=== PATIENT | male | born 1955 | race Caucasian/White ===

== ENCOUNTER → 2017-06-05 12:21 | Outpatient (CLI) | payer OTHER, MEDICARE, SELFPAY ==
[2017-06-05 16:21] LABS: AST(SGOT) 16 U/L (15-37); Alanine Aminotransfer ALT/SGPT 40 U/L (16-61); Albumin, Serum 3.6 g/dL (3.2-5.0); Alkaline Phosphatase 80 U/L (45-117); Anion Gap 7 (5-15); BUN 24 mg/dL (7-18); BUN/Creat Ratio 18.6 RATIO (10-20); Calcium,Total 8.8 mg/dL (8.5-10.1); Chloride 102 mmol/L (98-107); Creatinine, Serum 1.29 mg/dL (0.70-1.30); EST Glomerular Filtration Rate 60 mL/min (>60); Est Glom Filt Rate - Afr Amer 73 mL/min (>60); Globulin 3.7 g/dL (2.2-4.2); Glucose 138 mg/dL (74-106); Potassium 4.7 mmol/L (3.5-5.1); Protein, Total 7.3 g/dL (6.4-8.2); Sodium Level 139 mmol/L (136-145); Thyroid Stim Hormone (TSH) 2.15 uIU/mL (0.358-3.74)
== END ==
PROVIDERS: Family Provider Family Medicine; PCP Family Medicine; Visit Provider Family Medicine
DX: E11.9 Type 2 diabetes mellitus without complications (principal); I10 Essential (primary) hypertension
CPT/HCPCS: 36415; 80053; 84443

== ENCOUNTER → 2017-09-04 10:40 | Outpatient (CLI) | payer OTHER, SELFPAY ==
--- NOTE | 2017-09-04 10:45 | RAD_ITS ---
STUDY: X-RAY - LUMBAR SPINE REASON FOR EXAM: Male, 62 years old. Low back pain TECHNIQUE: 5 view(s) of the lumbar spine were obtained. COMPARISON: None FINDINGS: There is straightening of the normal lumbar lordosis. There is no substantial scoliosis. There is a 1.3 cm anterolisthesis of L5 on S1. There are bilateral pars defects of L5. There is multilevel endplate spondylosis of the lumbar vertebrae. Moderate narrowing of the disc at L5-S1. Otherwise normal disc heights. There is no demonstrated fracture. There is atherosclerotic calcification of the abdominal aorta without a demonstrated aneurysm. RAD/L/S Spine Min 4 Views IMPRESSION: No acute abnormality. Prominent malalignment at L5-S1 with degenerative disc disease. Electronically Signed: Abel Paris MD at 8:34 EDT , Service support ,
== END ==
PROVIDERS: Family Provider Family Medicine; PCP Family Medicine; Visit Provider Family Medicine
DX: M54.40 Lumbago with sciatica, unspecified side (principal)
CPT/HCPCS: 72110

== ENCOUNTER 2017-10-11 10:13 | Outpatient (RCR) | payer OTHER, SELFPAY | END 2017-10-22 23:59 | LOC: NS 10:13 | PROVIDERS: Family Provider Family Medicine; PCP Family Medicine; Visit Provider Family Medicine | DX: Z68.41 Body mass index [BMI] 40.0-44.9, adult (principal); Z71.3 Dietary counseling and surveillance | CPT/HCPCS: 97802 ==

== ENCOUNTER 2017-11-15 08:25 | Outpatient (RCR) | payer OTHER, SELFPAY | END 2017-11-22 23:59 | LOC: NS 08:25 | PROVIDERS: Family Provider Family Medicine; PCP Family Medicine; Visit Provider Family Medicine | DX: Z68.41 Body mass index [BMI] 40.0-44.9, adult (principal); Z71.3 Dietary counseling and surveillance | CPT/HCPCS: 97803 ==

== ENCOUNTER → 2017-12-05 11:34 | Outpatient (CLI) | payer OTHER, SELFPAY ==
--- NOTE | 2017-12-05 11:46 | RAD_ITS ---
STUDY: X-RAY - RIGHT KNEE REASON FOR EXAM: Male, 62 years old. Anterior and medial right-sided knee pain. TECHNIQUE: 4 view(s) of the knee. COMPARISON: Prior comparison studies are not available for review at this time. FINDINGS: Normal visualized distal femur. Normal visualized proximal tibia and fibula. Normal proximal tibiofibular articulation. There is no demonstrated fracture. There is moderate degenerative arthrosis of the medial femorotibial compartment with moderate joint space narrowing. Normal lateral femorotibial compartment. There is mild degenerative arthrosis of the patellofemoral articulation. There is mild lateral subluxation of the patella. There is a soft tissue prominence in the suprapatellar region suggesting a small volume joint effusion. There is soft tissue swelling. RAD/Knee 4 or More Views IMPRESSION: Degenerative arthropathy of the right knee with small joint effusion. Electronically Signed: Arlene Hylton MD at 8:12 EDT , Service support ,
== END ==
PROVIDERS: Family Provider Family Medicine; PCP Family Medicine; Visit Provider Family Medicine
DX: M25.561 Pain in right knee (principal)
CPT/HCPCS: 73564

== ENCOUNTER 2017-12-16 13:00 | Outpatient (RCR) | payer OTHER, SELFPAY ==
--- NOTE | 2017-10-07 14:10 | HP.PTEVAL_ITS ---
Patient's Visit Information OLIMPIA VILLA is a 62 year old M referred to Physical Therapy by Yovany Salmeron with a diagnosis of SPONDYLOLISTHESIS. Date of Evaluation: 10/07/17 Physical Therapist: Lesley Millard - Visit Plan Frequency: 2-3x /Week Duration: 4-6 Weeks Plan: *HEART CONDITION*. *JOINING [facility]. *NO BENDING OR TWISTING*. AQUATIC THERAPY FOR PAIN RELEIF, GAIT TRAINING, POSTURE CORRECTION/ STRENGTHENING, INSTRUCTION IN APPROPRIATE BODY MECHANICS AND ACTIVITY MODIFICATIONS. *DLS WITH A NEUTRAL SPINE* CHANA LE ROM, STRETCHING AND STRENGTHENING. HEP INSTRUCTION. START SLOW AND HAVE PATIENT TEST TOLERANCE BY GETTING OUT OF THE POOL A COUPLE OF TIMES DURING FIRST SESSION. - Subjective Subjective: Work/Leisure: RETIRED. Disability: YES - FOR HEART. Present symptoms: LOW BACK AND CHANA LE PAIN, NUMBNESS AND TINGLING TO FEET. Present since: ABOUT SEPTEMBER OF 2016 IT GOT WORSE BUT LONG HISTORY OF BACK PAIN AND TREATMENT WITH CHIROPRACTOR. Pain Scale: WORST 8/10, LEAST 0/10. Currently: 05/04. Commenced as a result of: NO APPARENT REASON. Symptoms at onset: LOW BACK AND LEGS. Worse: WALKING, WEED EATING, MOWING, WATERING THE GARDEN, STANDING AND BENDING OVER. Better: SITTING WITH LEGS UP. JUST SITTING HELPS. LYING DOWN. Disturbed sleep: SOMETIMES. Previous history/Previous treatment: PATIENT REPORTS HE HAS NEVER HAD A BACK PROBLEM BEFORE SEPTEMBER OR SO OF LAST YEAR. HE REPORTS HE CAN'T EXERCISE OR ANYTHING BECAUSE OF HIS PAIN NOW. HE REPORTS HE HAS JUST TRIED TO DEAL WITH IT ON HIS OWN UNTIL HE TOLD THE DOCTOR ABOUT IT LAST WEEK. NO BACK SURGERY. NO BACK INJECTIONS. NO BACK PT. NO BACK MEDICATION. PATIENT RECALS HE DID GO TO A CHIROPRACTOR FOR ONE VISIT AND IT SEEMED LIKE IT HELPED BUT TWO WEEKS LATER THE PAIN CAME BACK AND AFTER HIS X- RAYS HE REPORTS THE NURSE TOLD HIM DR. SALMERON DOESN'T WANT HIM TO GO BACK TO THE CHIROPRACTOR. HE IS ALSO NOW RECALLING THAT HE WENT TO ANOTHER CHIROPRACTOR OFF AND ON QUITE A BIT FOR 5 YEARS. HE RELATES THOSE TREATMENTS TO HURTING HIS BACK AND RIGHT SIDE LIFTING. Coughing/sneezing/straining: NEGATIVE. Gait: PATIENT REPORTS HE CAN BARELY WALK TO HIS MAILBOX AND BACK. IT STARTS HURTING AFTER WALKING ABOUT 120 FEET. AFTER SITTING ABOUT 15 TO 30 MINUTES HE CAN WALK AGAIN. Difficulty initiating urinatin: NO. Accidents: NO. Unexplained weight loss: NO. Imaging: PATIENT REPORTS THE DOCTOR ORDERED X-RAYS OF HIS BACK LAST WEEK THEN THE NURSE CALLED AND TOLD HIM TO DO PT. STUDY: X-RAY - LUMBAR SPINE. REASON FOR EXAM: Male, 62 years old. Low back pain. TECHNIQUE: 5 view(s) of the lumbar spine were obtained. COMPARISON: None. FINDINGS: There is straightening of the normal lumbar lordosis. There is no. substantial scoliosis. There is a 1.3 cm anterolisthesis of L5 on S1. There are bilateral pars. defects of L5. There is multilevel endplate spondylosis of the lumbar vertebrae. Moderate. narrowing of the disc at L5-S1. Otherwise normal disc heights. There is no. demonstrated fracture. There is atherosclerotic calcification of the abdominal aorta without a. demonstrated aneurysm. RAD/L/S Spine Min 4 Views. IMPRESSION: No acute abnormality. Prominent malalignment at L5-S1 with degenerative. disc disease. PMH: IDDM, HTN, HIGH CHOLESTEROL. Recent major surgery: HEART STENT PLACEMENTS IN 2005 AND 2014. OTHER: PATIENT REPORTS THE DOCTOR IS SENDING HIM TO [facility]. - Objective Sitting/Standing Posture: POOR. Lordosis: REDUCED. Lateral shift: NO. Relevant shift: N/A. Active Correction of posture: WORSE BUT PASSIVE CORRECTION DECREASES PAIN. Other Observations: INDEP GAIT INTO PT WITHOUT ANY ASSISTIVE DEVICES OR LOSS OF BALANCE. HE WALKS WITH A WIDE BASE OF SUPPORT AND CAN NOT WALK ON A STRAIGHT LINE ONE FOOT IN FRONT OF THE OTHER. IN STANDING, RIGHT SHOULDER IS HIGHER THAN LEFT. ILIAC CRESTS APPEAR TO BE FAIRLY SYMMETRICAL BUT DIFFICULT TO PALPATE. Motor deficit: CHANA LE'S 5/5 WITH MMT' ING. Sensory deficit: CHANA LE LIGHT TOUCH SENSATION IS SYMMETRICAL WITH TESTING TODYA. ROM deficit: VERY TIGHT CHANA HIP FLEXORS, HS'S AND GASTROC SOLEUS COMPLEX'S. Reflexes: 2/3 CHANA LE'S. Dural Signs: NEGATIVE CHANA LE DURAL SIGNS. Lumbar mvmt loss: flex - MIN. ext - TYRA. R SG - TYRA. L SG - TYRA. I PROCEEDED WITH LUMBAR ROM TESTING VERY CAUSIOUSLY. PATIENT DENIED INCREASED PAIN WITH LUMBAR ROM TESTING ALL PLANES. PATIENT C/O PAIN AFTER STANDING IN ONE SPOT FOR ABOUT 2 MINUTES. Core strength: POOR. Palpation: PATIENT IS NOT TENDER TO THE TOUCH IN HIS LUMBOSACRAL AREA. LOWER THORACIC AND LUMBAR SPINOUS PROCESSES ARE NOT TENDER. - Goals Goal 1:: DECREASE C/O LBP Goal Time Frame: 4-6 Weeks Goal 2:: IMPROVE STANDING AND WALKING FUNCTION Goal Time Frame: 4-6 Weeks Goal 3:: INSTRUCT IN PROPHYLAXIS Goal Time Frame: 4-6 Weeks - Rehabilitation Potential Rehabilitation Potential: Fair - Anticipated Interventions Patient/Client Instruction: Educate patient on: Condition, Plan of Care, Risk Factors, Benefits of Fitness Program For the Purpose of:: To improve self management Therapeutic Exercise to Include: Strength training, Body mechanics, Postural training, Flexibilty training, Gait and locomotor training, In an aquatic setting, Active ROM, Dynamic Lumbar Stabilization Comment: *NO BENDING OR TWISTING* For the Purpose of:: To decrease pain, To increase ROM, To improve muscle performance and motor function, To increase tolerance to activity/condition/ position, To improve ability of physical actions for home/community/work/leisure , To improve gait and locomotor functions Thank you for the opportunity to evaluate your patient. For Medicare and Medicare HMO plans, please review the plan of care and approve it. It will need to be FAXED BACK to us at [phone] for Medicare purposes. Please let me know if there are questions or concerns regarding this plan of care. Physician Signature: Date:
--- NOTE | 2017-11-08 14:00 | HP.PTREVAL_ITS ---
Yovany Salmeron, It has been my pleasure to treat OLIMPIA VILLA over the last 10 visits for SPONDYLOLISTHESIS. Please see the progress note below for an update on the physical therapy plan of care! Subjective: PATIENT REPORTS HE IS A LITTLE BIT BETTER BUT I STILL GET THE PAINS . HE REPORTS HE USE TO HAVE PAIN EVERY MORNING NOW IT IS MORE LIKE EVERY OTHER DAY. STATES HE CAN USE THE RIDING MOWER FOR A COUPLE HOURS - TAKES A BREAK BETWEEN FRONT AND BACK YARDS. UPCOMING APPOINTMENT WITH DR. SALMERON BEGINNING OF NOV. PATIENT REPORTS HE IS STILL GETTING LOW BACK AND CHANA LE PAIN UP TO 10/10 AT TIMES. CARRYING ABOUT 20 LBS A SHORT DISTANCE LAST SATURDAY CAUSED A LOT OF PAIN. PATIENT REPORTS HE DOES NOT THINK HE IS READY FOR LAND EX YET. WALKING IS STILL THE MOST LIMITED. BENDING AND PULLING ON HOSE TO HOOK IT UP AND MOVED IT INCREASED HIS PAIN. USING CART AT [facility] HELPS. Objective/Function: INDEP GAIT INTO PT WITHOUT ANY ASSISTIVE DEVICES OR LOSS OF BALANCE. HE WALKS WITH A WIDE BASE OF SUPPORT AND CAN NOT WALK ON A STRAIGHT LINE ONE FOOT IN FRONT OF THE OTHER. IN STANDING, RIGHT SHOULDER IS HIGHER THAN LEFT. PATIENT IS ABLE TO TRANSFER FROM SIT TO STAND WITHOUT UE ASSIST NOW BUT IT IS DIFFICULT. Motor deficit: CHANA LE'S 5/5 WITH MMT'ING. Sensory deficit: CHANA LE LIGHT TOUCH SENSATION IS STILL INTACT AND SYMMETRICAL WITH TESTING. ROM deficit: VERY TIGHT CHANA HIP FLEXORS, HS'S AND GASTROC SOLEUS COMPLEX'S. Dural Signs: NEGATIVE CHANA LE DURAL SIGNS. Lumbar mvmt loss: flex - NIL. ext - TYRA. R SG - MOD. L SG - MIN. I PROCEEDED WITH LUMBAR ROM TESTING VERY CAUSIOUSLY. PATIENT DENIED INCREASED PAIN WITH LUMBAR ROM TESTING ALL PLANES AND HE HAS INCREASED LUMBAR ROM COMPARED TO INITIAL EVAL. PATIENT C/O INCREASED BACK AND LEFT LE PAIN AFTER STANDING IN ONE SPOT FOR ABOUT 3.5 MINUTES. Core strength: POOR. Palpation: PATIENT IS STILL NOT TENDER TO THE TOUCH IN HIS LUMBOSACRAL AREA. LOWER THORACIC AND LUMBAR SPINOUS PROCESSES ARE NOT TENDER. EMPHASIZED TO PATIENT TO AVOID BENDING, LIFTING AND TWISTING. PATIENT COMMUNICATED A FAIR UNDERSTANDING. PATIENT NEEDED/NEEDS ENCOURAGEMENT TO COMPLY WITH RESTING SPINE. PATIENT ALSO NEEDED ASSIST UNDERSTANDING HOW TO GET STARTED IN THE POOL WITH THE [facility] PROGRAM. Plan Plan: PATIENT IS APPROPRIATE TO CONTINUE AQUATIC THERAPY BUT RECOMMEND DECREASE TO 1X/WEEK DUE TO PROGRESS MADE WITH INDEP POOL EX'S AND PATIENT HAVING A MEMBERSHIP TO USE OUR POOL THROUGHT THE [facility] BUT THERE IS STILL ROOM FOR MORE IMPROVEMENT/PROGRESSION. PATIENT IS AGREEABLE. Goals Goal 1:: DECREASE C/O LBP Goal Time Frame: 4-6 Weeks Goal 2:: IMPROVE STANDING AND WALKING FUNCTION Goal Time Frame: 4-6 Weeks Goal 3:: INSTRUCT IN PROPHYLAXIS Goal Time Frame: 4-6 Weeks Anticipated Interventions Patient/Client Instruction: Educate patient on: Condition, Plan of Care, Risk Factors, Benefits of Fitness Program For the Purpose of:: To improve self management Therapeutic Exercise to Include: Strength training, Body mechanics, Postural training, Flexibilty training, Gait and locomotor training, In an aquatic setting, Active ROM, Dynamic Lumbar Stabilization Comment: *NO BENDING OR TWISTING* For the Purpose of:: To decrease pain, To increase ROM, To improve muscle performance and motor function, To increase tolerance to activity/condition/ position, To improve ability of physical actions for home/community/work/leisure , To improve gait and locomotor functions Please do not hesitate to contact me at [phone] by phone or Fax: if you have questions or concerns regarding this new plan of care! Sincerely, Lesley Millard
--- NOTE | 2017-12-16 13:45 | HP.PTDCSUM_ITS ---
HP - PT D/C Summary It has been my pleasure to treat OLIMPIA VILLA under orders from Yovany Salmeron, for the diagnosis of SPONDYLOLISTHESIS for a total of 15 visit(s). Discharge Date: Please see the following information for a summary of their discharge status. - Subjective Subjective: PATIENT REPORTS HE IS HAVING A LOT OF PAIN IN HIS BACKS AND LEGS. STATES HE IS NO LONGER IMPROVING BUT HE DOESN'T THINK HE IS WORSE THOUGH. PATIENT REPORTS WHEN HE SAW DR. SALMERON FOR HIS KNEE HE TOLD HIM PT WASN'T HELPING HIM. - Pain LUmbar spine Pain Intensity (Out of 10): 2 LEFT LATERAL LEG Pain Intensity (Out of 10): 0 R knee Pain Intensity (Out of 10): 3 - Overall Improvement % Improvement: 60 - Objective Objective/Function: INDEP GAIT INTO PT WITHOUT ANY ASSISTIVE DEVICES OR LOSS OF BALANCE. HE WALKS WITH A WIDE BASE OF SUPPORT AND STILL CAN NOT WALK ON A STRAIGHT LINE ONE FOOT IN FRONT OF THE OTHER. IN STANDING, RIGHT SHOULDER IS HIGHER THAN LEFT. PATIENT IS ABLE TO TRANSFER FROM SIT TO STAND WITHOUT UE ASSIST BUT IT IS DIFFICULT. Motor deficit: CHANA LE'S 5/5 WITH MMT'ING. Sensory deficit: CHANA LE LIGHT TOUCH SENSATION IS STILL INTACT AND SYMMETRICAL WITH TESTING EXCEPT PATIENT REPORTS HE CAN FEEL MORE ON THE LEFT CALF THAN THE RIGHT LIKE IT IS MORE SENSATIVE COMPARED TO RIGHT. HIS LEFT CALF IS NOT RED, SWOLLEN, WARM OR TENDER WITH HOMANS SIGN TESTING. ROM deficit: VERY TIGHT CHANA HIP FLEXORS, HS'S AND GASTROC SOLEUS COMPLEX'S. Dural Signs: NEGATIVE CHANA LE DURAL SIGNS. Lumbar mvmt loss: flex - NIL. ext - TYRA. R SG - MOD. L SG - MIN. I PROCEEDED WITH LUMBAR ROM TESTING VERY CAUSIOUSLY. PATIENT DENIED INCREASED PAIN WITH LUMBAR ROM TESTING ALL PLANES AND HE HAS INCREASED LUMBAR ROM COMPARED TO INITIAL EVAL BUT SAME LAST RE-CHECK. PATIENT C/O INCREASED BACK PAIN AND ONSET OF LEFT LE PAIN AFTER STANDING IN ONE SPOT FOR LESS THAN ONE MINUTE TODAY. Core strength: POOR. Palpation: PATIENT IS STILL NOT TENDER TO THE TOUCH IN HIS LUMBOSACRAL AREA. LOWER THORACIC AND LUMBAR SPINOUS PROCESSES ARE NOT TENDER. EMPHASIZED AGAIN TO PATIENT TO AVOID BENDING, LIFTING AND TWISTING. PATIENT COMMUNICATED A FAIR UNDERSTANDING. PATIENT NEEDED /NEEDS ENCOURAGEMENT TO COMPLY WITH RESTING SPINE. PATIENT ALSO NEEDED ASSIST UNDERSTANDING HOW TO GET STARTED IN THE POOL WITH THE [facility]GRAM AND THIS PT HELPED HIM SPEAK WITH A WELLNESS STAFF MEMBER. - Goals Goal 1:: DECREASE C/O LBP Goal Progress: Not Progressing Goal 2:: IMPROVE STANDING AND WALKING FUNCTION Goal Progress: Not Progressing Goal 3:: INSTRUCT IN PROPHYLAXIS Goal Progress: Not Progressing - Plan Plan: D/C DUE TO LACK OF CONTINUED IMPROVEMENT. RECOMMENDED PATIENT FOLLOW UP WITH DR. SALMERON AND PATIENT AGREEABLE STATING HE WILL CALL HIM TODAY. - D/C Information If there are questions or concerns regarding this patient's physical therapy, please feel free to call me at [phone]. Thank you for the referral of this patient. Sincerely, Lesley Millard
== END 2017-12-16 19:00 | disposition home or self-care (01) ==
LOC: PT 13:00
PROVIDERS: Family Provider Family Medicine; PCP Family Medicine; Visit Provider Family Medicine
DX: M43.10 Spondylolisthesis, site unspecified (principal)
CPT/HCPCS: 97113; 97162; 97164; 97530

== ENCOUNTER 2017-12-20 13:00 | Outpatient (RCR) | payer OTHER, SELFPAY | END 2017-12-22 23:59 | LOC: NS 13:00 | PROVIDERS: Family Provider Family Medicine; PCP Family Medicine; Visit Provider Family Medicine | DX: E66.01 Morbid (severe) obesity due to excess calories (principal); Z68.41 Body mass index [BMI] 40.0-44.9, adult; Z71.3 Dietary counseling and surveillance | CPT/HCPCS: 97803 ==

== ENCOUNTER 2018-01-10 08:06 | Outpatient (RCR) | payer OTHER, SELFPAY | END 2018-01-22 23:59 | LOC: NS 08:06 | PROVIDERS: Family Provider Family Medicine; PCP Family Medicine; Visit Provider Family Medicine | DX: E66.01 Morbid (severe) obesity due to excess calories (principal); Z68.41 Body mass index [BMI] 40.0-44.9, adult; Z71.3 Dietary counseling and surveillance | CPT/HCPCS: 97803 ==

== ENCOUNTER → 2018-01-31 06:48 | Outpatient (CLI) | payer OTHER, SELFPAY ==
[2018-01-31 08:01] LABS: ALB/GLOB Ratio 0.9 RATIO (0.9-2.4); AST(SGOT) 15 U/L (15-37); Alanine Aminotransfer ALT/SGPT 37 U/L (16-61); Albumin, Serum 3.4 g/dL (3.2-5.0); Alkaline Phosphatase 77 U/L (45-117); Anion Gap 11 (5-15); BUN 23 mg/dL (7-18); BUN/Creat Ratio 18.1 RATIO (10-20); Calcium,Total 8.3 mg/dL (8.5-10.1); Chloride 107 mmol/L (98-107); Cholesterol 164 mg/dL (200); Creatinine, Serum 1.27 mg/dL (0.70-1.30); EST Glomerular Filtration Rate 61 mL/min (>60); Est Glom Filt Rate - Afr Amer 74 mL/min (>60); Globulin 3.8 g/dL (2.2-4.2); Glucose 126 mg/dL (74-106); High Density Lipoprotein 41 mg/dL; Potassium 4.2 mmol/L (3.5-5.1); Protein, Total 7.2 g/dL (6.4-8.2); Sodium Level 143 mmol/L (136-145); Thyroid Stim Hormone (TSH) 3.43 uIU/mL (0.358-3.74); Triglycerides 394 mg/dL; Very Low Density Lipoprotein 79 mg/dL (5-40)
== END ==
PROVIDERS: Family Provider Family Medicine; PCP Family Medicine; Referring Provider Family Medicine; Visit Provider Family Medicine
DX: E11.9 Type 2 diabetes mellitus without complications (principal)
CPT/HCPCS: 36415; 80053; 80061; 84403; 84443

== ENCOUNTER 2018-02-07 14:30 | Outpatient (RCR) | payer OTHER, SELFPAY | END 2018-02-21 23:59 | LOC: NS 14:30 | PROVIDERS: Family Provider Family Medicine; PCP Family Medicine; Visit Provider Family Medicine | DX: E66.01 Morbid (severe) obesity due to excess calories (principal); Z68.41 Body mass index [BMI] 40.0-44.9, adult; Z71.3 Dietary counseling and surveillance | CPT/HCPCS: 97803 ==

== ENCOUNTER 2018-02-28 11:15 | Outpatient (RCR) | payer OTHER, SELFPAY | END 2018-02-28 12:03 | disposition home or self-care (01) | LOC: NS 11:15 | PROVIDERS: Family Provider Family Medicine; PCP Family Medicine; Visit Provider Family Medicine | DX: E66.01 Morbid (severe) obesity due to excess calories (principal); Z68.41 Body mass index [BMI] 40.0-44.9, adult; Z71.3 Dietary counseling and surveillance | CPT/HCPCS: 97803 ==

== ENCOUNTER → 2018-09-15 | Outpatient (CLI) | payer OTHER, SELFPAY ==
--- NOTE | 2018-09-15 10:18 | NM_ITS ---
CLINICAL: 63-year-old male with history of known coronary atherosclerosis presenting for preoperative evaluation. RESTING RADIONUCLIDE VENTRICULOGRAPHY COMPARISON: Prior Resting Radionuclide Ventriculogram dated 11/30/2014 FINDINGS: Following the intravenous administration of 25.4 mCi of 99m Tc Ultratag RBCs, the resting labeled blood pool radionuclide ventriculogram reveals: 1. The left ventricular ejection fraction was calculated to be 58.0 % by equilibrium technique compared to 34.0 % defined on the previous examination dated 11/30/2014. 2. Left and right ventricular wall motion is considered normal and uniform in all projections. NM/MUGA Rest or Stress - Single IMPRESSION: 1. NORMAL resting labeled blood pool radionuclide ventriculography. A. Continued preservation of left ventricular systolic function as described above. B. Compared to the previous RRNV examination dated 11/30/2014, there is significant interval improvement. Electronically Signed: Ryland De Jesus DO at 23:00 EDT Tel , Service support ,
== END | disposition home or self-care (01) ==
LOC: NM 10:11
PROVIDERS: Family Provider Family Medicine; PCP Family Medicine
DX: I25.10 Atherosclerotic heart disease of native coronary artery without angina pectoris (principal); I50.32 Chronic diastolic (congestive) heart failure; I50.30 Unspecified diastolic (congestive) heart failure
CPT/HCPCS: 78472; A9560

== ENCOUNTER → 2018-11-27 | Outpatient (CLI) | payer OTHER, SELFPAY ==
[2018-11-27 09:17] LABS: Absolute Lymphocyte Count 1.37 X10^3/uL (0.83-4.51); Absolute Neutrophil Count 5.5 X10^3/uL (2.0-7.7); Basophil# 0.04 X10^3/uL; Basophil% 0.5 % (0-1); Eosinophil# 0.18 X10^3/uL; Eosinophils% 2.3 % (0-5); Hematocrit 44.1 % (40-54); Lymphocyte # 1.37 X10^3/ul (4.0); Lymphocyte % 17.7 % (19-41); Mean Corp Hgb Conc 31.7 g/dL (32-36); Mean Corpuscular Hgb 29.2 pg (27.0-32.0); Mean Corpuscular Volume 92.1 fL (80-94); Monocyte# 0.62 X10^3/uL; NRBC Flagged by Analyzer 0 % (0-5); Neutrophil # 5.52 X10^3/uL (2.7-7.7); Neutrophil % 71.2 % (47-70); Platelet Count 199 K/mm3 (150-450); RBC Distribution Width CV 14.5 % (11.6-14.6); RBC Distribution Width SD 49.3 fl (35.1-43.9); Red Blood Count 4.79 M/mm3 (4.6-6.2); White Blood Count 7.8 K/mm3 (4.4-11.0)
[2018-11-27 09:56] LABS: AST(SGOT) 12 U/L (15-37); Alanine Aminotransfer ALT/SGPT 27 U/L (16-61); Albumin, Serum 3.5 g/dL (3.2-5.0); Alkaline Phosphatase 81 U/L (45-117); Anion Gap 3 (5-15); BUN 29 mg/dL (7-18); BUN/Creat Ratio 21.2 RATIO (10-20); Calcium,Total 8.6 mg/dL (8.5-10.1); Chloride 104 mmol/L (98-107); Cholesterol 149 mg/dL (200); Creatinine, Serum 1.37 mg/dL (0.70-1.30); EST Glomerular Filtration Rate 56 mL/min (>60); Est Glom Filt Rate - Afr Amer 67 mL/min (>60); Globulin 3.6 g/dL (2.2-4.2); Glucose 132 mg/dL (74-106); High Density Lipoprotein 38 mg/dL; Potassium 4.2 mmol/L (3.5-5.1); Protein, Total 7.1 g/dL (6.4-8.2); Sodium Level 139 mmol/L (136-145); Triglycerides 407 mg/dL
== END | disposition home or self-care (01) ==
LOC: LAB.FUTURE 08:02 → LAB 08:04
PROVIDERS: Family Provider Family Medicine; PCP Family Medicine; Referring Provider Family Medicine; Visit Provider Family Medicine
DX: E78.2 Mixed hyperlipidemia (principal)
CPT/HCPCS: 36415; 80053; 80061; 85025

== ENCOUNTER → 2019-03-20 14:01 | Outpatient (CLI) | payer OTHER, SELFPAY ==
--- NOTE | 2019-03-20 14:05 | ECHOCS_ITS ---
Reason For Study: DYSPNEA/SOB, R/O PHTN Procedure This was a 2D Doppler, Color Flow transthoracic echocardiogram. The study was technically difficult. Due to body habitus. Contrast injection was performed. Exam performed in department. Left Ventricle Normal size and thickness. Moderately dilated left ventricle. The estimated ejection fraction is 45 %. Stage 1 diastolic dysfunction. There is mild to moderate global hypokinesis of the left ventricle. Right Ventricle Normal size and thickness. Normal systolic function. Atria Normal left atrium. Normal right atrium. Normal atrial septum. Mitral Valve The mitral valve is structurally normal. No prolapse or stenosis seen. Tricuspid Valve Normal tricuspid valve. Unable to estimate RV systolic pressure due to insufficient tricuspid regurgitant envelope. Aortic Valve Normal aortic valve. Trisinus/trileaflet aortic valve. Pulmonic Valve The pulmonic valve is not well visualized. Great Vessels Normal aortic root. Normal arch. Normal inferior vena cava. Pericardium/Pleural No pericardial effusion. Medication 22 gauge I.V. with prn adaptor inserted into right arm. Diluted definity 6.0ml given slow IV push to enhance endocardial definition. MMode/2D Measurements & Calculations LVIDd: 5.9 cm IVSd: 1.2 cm Ao root diam: 3.2 cm LVIDs: 4.3 cm LVPWd: 1.1 cm RVDd: 3.2 cm FS: 27.2 % LAV(MOD-bp): 54.2 ml LA A4 area: 18.8 cm2 LA dimension(2D): 4.5 cm LAV(MOD-bp) Indexed: 24.9 ml/m2 LAV(MOD-sp2): 51.3 ml LAV(MOD-sp4): 50.7 ml RA A4 area: 16.8 cm2 Time Measurements MV dec time: 0.19 sec Doppler Measurements & Calculations MV E max maxim: 113.2 cm/sec Lat Peak E' Maxim: 11.6 cm/sec Med Peak E' Maxim: 5.5 cm/sec MV A max maxim: 129.1 cm/sec E/E' lat: 9.7 E/E' med: 20.6 MV E/A: 0.88 Ao V2 max: 150.2 cm/sec LV V1 max: 91.0 cm/sec PA V2 max: 116.3 cm/sec Ao max P.0 mmHg LV V1 max P.3 mmHg Interpretation Summary Moderately dilated left ventricle. The estimated ejection fraction is 45 %. Stage 1 diastolic dysfunction. There is mild to moderate global hypokinesis of the left ventricle. Unable to estimate RV systolic pressure due to insufficient tricuspid regurgitant envelope. Recommend considering right heart catheterization for direct right heart pressure measurements. The study was technically difficult. There is no comparison study available. Contrast injection was performed. Ordering Physician: Obed Alberto Referring Physician: Yovany Ellis Performed By: Jyothi Price RDCS, RVT
== END ==
PROVIDERS: Family Provider Family Medicine; PCP Family Medicine; Referring Provider Internal Medicine Pulmonary Disease; Visit Provider Internal Medicine Pulmonary Disease
DX: R06.09 Other forms of dyspnea (principal)
CPT/HCPCS: 93306; Q9957; A4216; C8929

== ENCOUNTER → 2019-06-18 11:00 | Outpatient (CLI) | payer MEDICARE, SELFPAY | PROVIDERS: PCP Family Medicine; Referring Provider Internal Medicine Pulmonary Disease; Visit Provider Internal Medicine Pulmonary Disease | DX: Z46.89 Encounter for fitting and adjustment of other specified devices (principal) ==

== ENCOUNTER → 2019-07-31 | Outpatient (CLI) | payer MEDICARE, SELFPAY ==
[2019-07-31 12:23] LABS: ALB/GLOB Ratio 1.1 RATIO (0.9-2.4); AST(SGOT) 17 U/L (15-37); Alanine Aminotransfer ALT/SGPT 32 U/L (16-61); Albumin, Serum 3.8 g/dL (3.2-5.0); Alkaline Phosphatase 73 U/L (45-117); Anion Gap 7 (5-15); BUN 32 mg/dL (7-18); BUN/Creat Ratio 21.9 RATIO (10-20); Calcium,Total 9.2 mg/dL (8.5-10.1); Chloride 104 mmol/L (98-107); Cholesterol 169 mg/dL (200); Creatinine, Serum 1.46 mg/dL (0.70-1.30); EST Glomerular Filtration Rate 52 mL/min (>60); Est Glom Filt Rate - Afr Amer 62 mL/min (>60); Globulin 3.6 g/dL (2.2-4.2); Glucose 99 mg/dL (74-106); High Density Lipoprotein 45 mg/dL; Potassium 4.1 mmol/L (3.5-5.1); Protein, Total 7.4 g/dL (6.4-8.2); Sodium Level 139 mmol/L (136-145); Thyroid Stim Hormone (TSH) 2.28 uIU/mL (0.358-3.74); Triglycerides 323 mg/dL; Very Low Density Lipoprotein 65 mg/dL (5-40)
== END | disposition home or self-care (01) ==
LOC: LAB 10:38
PROVIDERS: PCP Family Medicine; Referring Provider Family Medicine; Visit Provider Family Medicine
DX: E11.9 Type 2 diabetes mellitus without complications (principal); Z12.5 Encounter for screening for malignant neoplasm of prostate
CPT/HCPCS: 36415; 80053; 80061; 84153; 84443; G0103

== ENCOUNTER → 2020-01-06 | Outpatient (CLI) | payer MEDICARE, SELFPAY ==
[2020-01-06 14:55] LABS: Anion Gap 7 (5-15); BUN 24 mg/dL (7-18); BUN/Creat Ratio 16.3 RATIO (10-20); Calcium,Total 8.7 mg/dL (8.5-10.1); Chloride 106 mmol/L (98-107); Creatinine, Serum 1.47 mg/dL (0.70-1.30); EST Glomerular Filtration Rate 51 mL/min (>60); Est Glom Filt Rate - Afr Amer 62 mL/min (>60); Glucose 192 mg/dL (74-106); Potassium 4.4 mmol/L (3.5-5.1); Sodium Level 139 mmol/L (136-145)
== END | disposition home or self-care (01) ==
LOC: LAB 13:42
PROVIDERS: PCP Family Medicine
DX: I11.0 Hypertensive heart disease with heart failure (principal); I50.23 Acute on chronic systolic (congestive) heart failure; E11.9 Type 2 diabetes mellitus without complications; Z79.4 Long term (current) use of insulin
CPT/HCPCS: 36415; 80048

== ENCOUNTER → 2020-11-08 08:00 | Outpatient (CLI) | payer MEDICARE, SELFPAY ==
[2020-11-08 08:30] LABS: Hemoglobin 15.9 g/dL (13.0-16.5); Mean Corp Hgb Conc 31.8 g/dL (32-36); Mean Corpuscular Hgb 29.9 pg (27.0-32.0); Mean Corpuscular Volume 94.2 fL (80-94); Mean Platelet Vol. 9.6 fl (6.2-12.0); Platelet Count 200 K/mm3 (150-450); RBC Distribution Width CV 14.6 % (11.6-14.6); RBC Distribution Width SD 50.8 fl (35.1-43.9); Red Blood Count 5.31 M/mm3 (4.6-6.2); White Blood Count 8.2 K/mm3 (4.4-11.0)
[2020-11-08 09:10] LABS: AST(SGOT) 14 U/L (15-37); Alanine Aminotransfer ALT/SGPT 28 U/L (16-61); Albumin, Serum 3.5 g/dL (3.2-5.0); Alkaline Phosphatase 75 U/L (45-117); Anion Gap 8 (5-15); BUN 29 mg/dL (7-18); BUN/Creat Ratio 21.2 RATIO (10-20); Calcium,Total 8.8 mg/dL (8.5-10.1); Chloride 101 mmol/L (98-107); Cholesterol 161 mg/dL (200); Creatinine, Serum 1.37 mg/dL (0.70-1.30); EST Glomerular Filtration Rate 55 mL/min (>60); Est Glom Filt Rate - Afr Amer 67 mL/min (>60); Globulin 3.6 g/dL (2.2-4.2); Glucose 131 mg/dL (74-106); High Density Lipoprotein 43 mg/dL; PSA,Total - Annual Screen 3.81 ng/mL (0.00-4.00); Protein, Total 7.1 g/dL (6.4-8.2); Sodium Level 138 mmol/L (136-145); Thyroid Stim Hormone (TSH) 2.56 uIU/mL (0.358-3.74); Triglycerides 324 mg/dL; Very Low Density Lipoprotein 65 mg/dL (5-40)
== END ==
PROVIDERS: PCP Family Medicine; Referring Provider Family Medicine; Visit Provider Family Medicine
DX: I25.10 Atherosclerotic heart disease of native coronary artery without angina pectoris (principal); E11.69 Type 2 diabetes mellitus with other specified complication; E11.40 Type 2 diabetes mellitus with diabetic neuropathy, unspecified; Z12.5 Encounter for screening for malignant neoplasm of prostate
CPT/HCPCS: 36415; 80053; 80061; 84153; 84443; 85027; G0103

== ENCOUNTER → 2021-06-08 06:52 | Outpatient (CLI) | payer MEDICARE, SELFPAY ==
--- NOTE | 2021-06-08 15:39 | STRESSREP ---
Stress Test Report Date: 06/08/2021 Procedure: Exercise tolerance test/imaging study Indications: CAD, chest pain Consent: Per the patient Procedure: The patient exercised on a Harshal protocol for 4 minutes and 1 second achieving a peak heart rate of 139 bpm (90% predicted maximal heart rate) with a peak blood pressure 130/88 mmHg and a peak MET capacity of 7 METs. The baseline ECG demonstrated normal sinus rhythm, prior anteroseptal ME. The peak exercise ECG demonstrated no significant ischemic changes. EKG during recovery revealed no significant ischemic changes [There were no cardiac dysrhythmias pretest, during exercise, or recovery]. The functional capacity was considered mildly decreased for age. There was [no complaint of chest discomfort during exercise or recovery]. The examination was discontinued secondary to dyspnea, fatigue. Impression: 1. Technically adequate (percent predicted maximal heart rate greater than 85%) exercise tolerance test 2. Stress test is negative for exercise-induced EKG changes of ischemia 3. The test test is negative for exercise-induced chest pain 4. Functional capacity is mildly decreased for age 5. Nuclear images pending Myocardial perfusion imaging study: Technique: The patient was injected with 14.8 mCi of technetium 99m Cardiolite and subsequently rest SPECT Cardiolite nuclear imaging was obtained in the horizontal long, vertical long, and short axis views. The patient exercised on a Harshal protocol. Please see above for details. The patient was injected with 45 mCi of technetium 99m Cardiolite and subsequently stress SPECT Cardiolite nuclear imaging was obtained in the horizontal long, vertical long, and short axis views. A gated Cardiolite study at peak stress was obtained. Interpretation: Rest and stress SPECT Cardiolite nuclear imaging status post realignment, normalization, and attenuation correction, demonstrates absent radioisotope uptake in the inferior wall. The gated Cardiolite study demonstrates severe hypokinesis of the inferior wall. These findings are suggestive of prior inferior ME with no evidence of inducible ischemia. The reported LVEF is 33%. Impression: 1. There is no evidence of ischemia. Evidence of prior inferior myocardial infarction. 2. The gated Cardiolite study reports an LVEF of 33%. This note was generated with [employer] software. It may contain incorrect words, spelling, and punctuation that were not noted in checking the note before signing.
== END ==
PROVIDERS: PCP Family Medicine
DX: I25.119 Atherosclerotic heart disease of native coronary artery with unspecified angina pectoris (principal); R07.9 Chest pain, unspecified; R06.02 Shortness of breath
CPT/HCPCS: 78452; 93017; A9500; A4216; J2785

== ENCOUNTER 2021-07-06 08:04 | Outpatient (CLI) | payer MEDICARE, SELFPAY ==
[2021-07-06 09:06] LABS: AST(SGOT) 13 U/L (15-37); Alanine Aminotransfer ALT/SGPT 30 U/L (16-61); Albumin, Serum 3.6 g/dL (3.2-5.0); Alkaline Phosphatase 78 U/L (45-117); Anion Gap 6 (5-15); BUN 26 mg/dL (7-18); Calcium,Total 8.9 mg/dL (8.5-10.1); Chloride 101 mmol/L (98-107); Cholesterol 160 mg/dL (200); Creatinine, Serum 1.37 mg/dL (0.70-1.30); EST Glomerular Filtration Rate 55 mL/min (>60); Est Glom Filt Rate - Afr Amer 67 mL/min (>60); Globulin 3.5 g/dL (2.2-4.2); Glucose 153 mg/dL (74-106); High Density Lipoprotein 44 mg/dL; Potassium 4.1 mmol/L (3.5-5.1); Protein, Total 7.1 g/dL (6.4-8.2); Sodium Level 137 mmol/L (136-145); Triglycerides 404 mg/dL
== END 2021-07-06 23:59 | disposition home or self-care (01) ==
LOC: LAB 08:06
PROVIDERS: PCP Family Medicine; Referring Provider Family Medicine; Visit Provider Family Medicine
DX: E11.40 Type 2 diabetes mellitus with diabetic neuropathy, unspecified (principal)
CPT/HCPCS: 36415; 80053; 80061

== ENCOUNTER → 2021-11-28 | Outpatient (CLI) | payer MEDICARE, SELFPAY ==
[2021-11-28 18:11] LABS: Absolute Neutrophil Count 6.1 X10^3/uL (2.0-7.7); Basophil# 0.04 X10^3/uL; Basophil% 0.5 % (0-1); Eosinophil# 0.28 X10^3/uL; Eosinophils% 3.3 % (0-5); Hematocrit 50.6 % (40-54); Hemoglobin 16.7 g/dL (13.0-16.5); Lymphocyte % 15.4 % (19-41); Mean Corpuscular Hgb 31.2 pg (27.0-32.0); Mean Corpuscular Volume 94.4 fL (80-94); Mean Platelet Vol. 9.8 fl (6.2-12.0); Monocyte# 0.65 X10^3/uL; Monocyte% 7.7 % (0-10); NRBC Flagged by Analyzer 0 % (0-5); Neutrophil # 6.14 X10^3/uL (2.7-7.7); Neutrophil % 72.6 % (47-70); Platelet Count 217 K/mm3 (150-450); RBC Distribution Width CV 14.8 % (11.6-14.6); RBC Distribution Width SD 51.7 fl (35.1-43.9); Red Blood Count 5.36 M/mm3 (4.6-6.2); White Blood Count 8.5 K/mm3 (4.4-11.0)
[2021-11-28 18:26] LABS: Vitamin B12 428 pg/mL (211-911); Vitamin D,25 Hydroxy 35.7 ng/mL
[2021-11-28 18:36] LABS: ALB/GLOB Ratio 0.9 RATIO (0.9-2.4); AST(SGOT) 16 U/L (15-37); Alanine Aminotransfer ALT/SGPT 35 U/L (16-61); Albumin, Serum 3.6 g/dL (3.2-5.0); Alkaline Phosphatase 71 U/L (45-117); Anion Gap 11 (5-15); BUN 30 mg/dL (7-18); BUN/Creat Ratio 20.1 RATIO (10-20); Calcium,Total 8.9 mg/dL (8.5-10.1); Chloride 103 mmol/L (98-107); Creatinine, Serum 1.49 mg/dL (0.70-1.30); EST Glomerular Filtration Rate 50 mL/min (>60); Est Glom Filt Rate - Afr Amer 61 mL/min (>60); Ferritin 73 ng/mL (26-388); Glucose 121 mg/dL (74-106); Iron 78 ug/dL (65-175); Potassium 4.5 mmol/L (3.5-5.1); Protein, Total 7.6 g/dL (6.4-8.2); Sodium Level 140 mmol/L (136-145); Thyroid Stim Hormone (TSH) 1.68 uIU/mL (0.358-3.74)
== END | disposition home or self-care (01) ==
LOC: MFPLAB 15:16
PROVIDERS: PCP Family Medicine; Visit Provider Family Medicine
DX: R53.83 Other fatigue (principal); E11.22 Type 2 diabetes mellitus with diabetic chronic kidney disease; N18.30 Chronic kidney disease, stage 3 unspecified
CPT/HCPCS: 36415; 80053; 82306; 82607; 82728; 83540; 84403; 84443; 85025

== ENCOUNTER → 2022-04-10 | Outpatient (CLI) | payer MEDICARE, SELFPAY ==
--- NOTE | 2022-04-10 15:33 | RAD_ITS ---
INDICATION: pain EXAMINATION/TECHNIQUE: X-RAY - LEFT XR Knee Complete 4 Views or More 4 VIEWS COMPARISON: None. FINDINGS: SOFT TISSUES: No soft tissue swelling or gas. No radiopaque foreign body. BONES/JOINTS: No acute fracture or subluxation.. Normal alignment. Severely narrowed medial compartment of the femoral-tibial joint space with mild valgus angulation... No sclerotic or destructive changes observed. RAD/Knee 4 or More Views IMPRESSION: Degenerative changes. No evidence for acute fracture or significant bony pathology Electronically Signed: Jonnie Ruiz MD at 17:11 EST ,
== END | disposition home or self-care (01) ==
LOC: MTRAD 15:25
PROVIDERS: PCP Family Medicine; Referring Provider Family Medicine; Visit Provider Family Medicine
DX: M25.562 Pain in left knee (principal)
CPT/HCPCS: 73564